=== PATIENT | male | born 1970 | race Two or more races ===

== ENCOUNTER 2022-04-24 13:56 | Emergency (ER) | payer MEDICAID ==
[~2022-04-24] VITALS: Ht 172.7 cm; Wt 79.0 kg
[2022-04-24 15:07] LABS: BASOPHILS % 0.4 % (0.0-2.0); EOSINOPHILS % 0.3 % (0.0-5.0); HEMATOCRIT. 48.2 % (42.0-52.0); HEMOGLOBIN. 16.7 g/dL (14.0-18.0); LYMPHOCYTES % 14.8 % (20.0-50.0); MEAN CORPUSCULAR HEMOGLOBIN 30.7 pg (28.0-32.0); MEAN CORPUSCULAR VOLUME 88.4 fL (80.0-94.0); MONOCYTES % 3.7 % (2.0-8.0); NEUTROPHILS % 80.8 % (40.0-76.0); PLATELET 236 x1000/uL (130-400); RED BLOOD CELL COUNT 5.45 mill/uL (4.7-6.1); RED CELL DISTRIBUTION WIDTH 13.5 % (11.6-14.6)
[2022-04-24 15:10] LABS: CHLORIDE 99 mEq/L (98-107)
[2022-04-24 15:11] LABS: PROTHROMBIN TIME 10.9 sec (9.6-11.0)
[2022-04-24] MEDS ORDERED: MORPHINE SULFATE 4 MG/ML CPJ (NOT FOR IM USE) IV ONE (15:15)
[2022-04-24 15:21] LABS: ETHANOL BLOOD < 10 mg/dL
[2022-04-24] MEDS ORDERED: SODIUM CHLORIDE 0.9% 1,000 ML IV ONE (15:45)
[2022-04-24] MEDS ORDERED: ACETAMINOPHEN 325MG TABLET PO ONE (18:30)
[2022-04-24] MEDS ORDERED: DIAZEPAM 2 MG TABLET PO ONE (18:30)
[2022-04-24] MEDS ORDERED: METHOCARBAMOL 750MG TABLET PO SCH (18:30)
[2022-04-24] MEDS ORDERED: LIDOCAINE 5% PATCH TOP SCH (18:30)
[2022-04-24] MEDS ORDERED: KETOROLAC 30MG/ML VIAL IV ONE (18:30)
[2022-04-24] MEDS ORDERED: TOPUD PO (18:46)
[2022-04-24] MEDS ORDERED: IBUP-2028 MT (18:46)
[2022-04-24] MEDS ORDERED: LIDO1ADH23 TP (18:46)
[2022-04-24] MEDS ORDERED: METH-653 MT (18:46)
[2022-04-24 19:13] VITALS: BP 120/82
[2022-04-24] MEDS ORDERED: IOHEXOL-350 100 ML BOTTLE ONE (21:23)
== END 2022-04-24 19:40 | disposition home or self-care (01) ==
LOC: ER 13:56
DX: M54.50 Low back pain, unspecified (principal); N40.0 Benign prostatic hyperplasia without lower urinary tract symptoms; I49.9 Cardiac arrhythmia, unspecified
CPT/HCPCS: 36415; 70450; 71045; 71275; 74174; 80053; 80307; 80320; 80329; 82962; 83690; 83880; 84484; 85025; 85610; 93005; 96374; 96375; 99285; J1885; J2270; J7030; Q9967; G0480